=== PATIENT | male | born 2000 | race Caucasian/White ===

== ENCOUNTER 2022-04-15 20:26 | Emergency (ER) | payer MEDICAID ==
[2022-04-15 20:38] VITALS: BP 163/100; PULSE 80; O2SAT 98
--- NOTE | 2022-04-15 21:25 | ERPHSYRPT ---
- History of Present Illness Time Seen by Provider: 04/15/22 20:34 Source: patient Exam Limitations: no limitations Patient Subjective Stated Complaint: Ladder fell on head 1 hour ago. Triage Nursing Assessment: Pt presents to ED ambulatory, A & Ox3, all vitals stable. Skin PWD. Pt placed on monitor once in room. 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 No LOC, dizziness, nausea, or vomiting. Reports MOSES 7/10. Denies use of bloothinners. Denies neck pain. 1.5cm superficial laceration noted to crown of head. Slightly oozing red blood. Last tetanus immunization unknown. Physician History: 21 years old up-to-date with immunizations was working in the garage and heavy wooden ladder fell on its head causing a laceration. Patient was initially dazed, confused for a few seconds to minute and now feeling nauseated with moderate intensity headache especially in occipital parietal area. Denies any blurry vision, numbness tingling or focal weakness. There was bleeding initially but stopped with applying pressure. No injury anywhere else. Denies any neck pain. Occurred: hours ago (1) Severity: moderate Head Injury Location: parietal Method of Injury: direct blow Loss of Consciousness: no loss of consciousness Associated Symptoms: nausea, headaches, No vomiting, No abdominal pain, No shortness of breath, No diaphoresis, No chills, No chest pain, No malaise, No weakness Allergies/Adverse Reactions: No Known Drug Allergies Allergy (Unverified 04/15/22 20:39) Hx Tetanus, Diphtheria Vaccination/Date Given: No Travel Risk - International Travel Have you traveled outside of the country in past 3 weeks: No - Coronavirus Screening Are you exhibiting any of the following symptoms?: No Close contact with a COVID-19 positive Pt in past 14-21 Days: No - Vaccine Status Have you recieved a Covid-19 vaccination: No - Review of Systems Constitutional: No Symptoms Eyes: No Symptoms Ears, Nose, & Throat: No Symptoms Respiratory: No Symptoms Cardiac: No Symptoms Abdominal/Gastrointestinal: Nausea Genitourinary Symptoms: No Symptoms Musculoskeletal: Injury Skin: Skin Lesions Neurological: Headache Psychological: No Symptoms Hematologic/Lymphatic: No Symptoms Immunological/Allergic: No Symptoms - Past Medical History Pertinent Past Medical History: Yes Cardiac History: Hypertension - Past Surgical History Past Surgical History: No - Social History Smoking Status: Never smoker Exposure to second hand smoke: No Drug Use: none - Nursing Vital Signs Nursing Vital Signs: Initial Vital Signs Temperature 98.3 F 04/15/22 20:33 Pulse Rate 80 04/15/22 20:33 Respiratory Rate 18 04/15/22 20:33 Blood Pressure 163/100 04/15/22 20:33 O2 Sat by Pulse Oximetry 98 04/15/22 20:33 Pain Scale Pain Intensity 7 - Pigeon Coma Score Best Eye Response (Latasha): (4) open spontaneously Best Verbal Response (Pigeon): (5) oriented Best Motor Response (Latasha): (6) obeys commands Pigeon Total: 15 - Physical Exam General Appearance: no apparent distress, alert Head Injury: lacerations (2 cm laceration in the left posterior parietal area with no step in deformity. No active spurting.), tenderness, No active bleeding, No Alves's Sign Eye Exam: bilateral eye: normal inspection, PERRL, EOMI ENT Exam: airway nml, No evidence of ENT injury, No dental injury Neck Exam: supple, trachea midline, full range of motion, normal alignment, normal inspection Cardiovascular/Respiratory Exam: chest non-tender, normal breath sounds, regular rate/rhythm Gastrointestinal/Abdominal Exam: soft Back Exam: normal inspection, normal range of motion Extremity Exam: non-tender, normal range of motion Mental Status Exam: alert, oriented x 3, cooperative hay stacker Exam: normal hearing, normal speech, PERRL Coordination/Gait Exam: normal finger to nose, normal gait, normal cerebellar function, negative Romberg's sign Motor/Sensory Exam: no motor deficit, no sensory deficit, no pronator drift, negative Babinski's sign DTR Exam: bicep (R): 2+, bicep (L): 2+, knee (R): 2+, knee (L): 2+ Skin Exam: normal color SpO2 Interpretation: normal SpO2: 98 O2 Delivery: Room Air Procedures - Laceration/Wound Repair Head Time of Procedure: 21:24 Wound Location: head Wound Length (cm): 2 Wound's Depth, Shape: superficial Wound Explored: clean Irrigated: Yes Hibiclens Prep: Yes Anesthesia: 1% Lidocaine Volume Anesthetic (ccs): 2 Wound Repaired With: [place] Number of Sutures: 3 Layer Closure?: No Ordered Tests: Active Orders 24 hr Category Date Time Status HEAD WITHOUT CONTRAST [CT] Stat Exams 04/15/22 20:58 Taken - Progress Progress: improved Progress Note: 04/15/[address] head which is negative for any acute trauma related findings. Laceration is repaired. Patient probably have some element of concussion, recommended Tylenol as needed for headache and outpatient follow-up. Also recommended avoiding being around heavy mechanical work. Counseled pt/family regarding: diagnosis, need for follow-up, rad results - Departure Departure Disposition: Home Clinical Impression: Scalp laceration, Concussion Condition: Stable Critical Care Time: No Referrals: TOMMIE OLIVER [Primary Care Provider] - Follow up/PCP as directed (1-2 days for reevaluation) Instructions: Concussion, Adult (DC), Closed Head Injury (DC) Additional Instructions: Intermittent ice application. Take Tylenol as needed. Follow-up head injury/concussion instructions and return to ER for any worsening. Follow-up with primary care for reevaluation and clearance before going back to work.
[2022-04-15] MEDS ORDERED: TYLENOL 325 MG ONE (21:49)
[2022-04-15] MEDS: TYLENOL 325 MG PO STA (21:50)
--- NOTE | 2022-04-16 09:08 | XRAY ---
Indication: Headache, pain, nausea following trauma. Multiple contiguous axial images obtained through the head without contrast. Comparison: None Normal appearing brain parenchyma, ventricles, and bony calvarium. Visualized paranasal sinuses and mastoid air cells are clear. Impression: Normal CT head without contrast exam. Comment: Preliminary interpretation made by [facility]. No critical discrepancy.
== END 2022-04-15 22:31 | disposition home or self-care (01) ==
LOC: ED 20:26
DX: S06.0X0A Concussion without loss of consciousness, initial encounter (principal); S01.01XA Laceration without foreign body of scalp, initial encounter; W20.8XXA Other cause of strike by thrown, projected or falling object, initial encounter; Y92.008 Other place in unspecified non-institutional (private) residence as the place of occurrence of the external cause; R11.0 Nausea; R51.9 Headache, unspecified; I10 Essential (primary) hypertension; Z28.310 Unvaccinated for COVID-19
CPT/HCPCS: 12001; 70450; 99283; A9270-GY

== ENCOUNTER 2024-02-19 16:07 | Emergency (ER) | payer OTHER ==
--- NOTE | 2024-02-19 16:10 | ERPHSYRPT ---
- History of Present Illness Time Seen by Provider: 02/19/24 16:09 Historian: patient Exam Limitations: no limitations Physician History: This is a 23-year-old white male patient of Dr. Jacobsen and grubber Dr. Andres. Patient states he recently saw his grubber and everything checked out fine per his report. Patient has a history of an enlarged heart and some rhythm issues but he is not on any cardiac medications. He does have a history of hypertension and is taking lisinopril. He has no shortness of breath. He has no cough or fever symptoms. Patient states that the patient was not active and was at work when he noticed some pain in the midportion of the sternum. He described it as an ache with sharp shooting bilateral sensation into his anteri or chest. He has no history of coronary artery disease. Timing/Duration: today Activities at Onset: none Quality: aching, sharpness Location: substernal, central Severity of Pain-Max: mild Severity of Pain-Current: mild Modifying Factors: Improves With: nothing Associated Symptoms: denies symptoms Prior Chest Pain/Cardiac Workup: recently seen/treated (His grubber within the last 1 to 2 weeks) Nitro Today/Relief: no nitro taken today Aspirin Treatment Today: 81 mg x 4, provided by ED Allergies/Adverse Reactions: No Known Drug Allergies Allergy (Unverified 04/15/22 20:39) Hx Tetanus, Diphtheria Vaccination/Date Given: No Travel Risk - International Travel Have you traveled outside of the country in past 3 weeks: No - Emerging Infectious Disease Are you exhibiting symptoms associated with any current EIDs: No - Review of Systems Constitutional: No Symptoms Eyes: No Symptoms Ears, Nose, & Throat: No Symptoms Respiratory: No Symptoms Cardiac: Chest Pain Abdominal/Gastrointestinal: No Symptoms Genitourinary Symptoms: No Symptoms Musculoskeletal: No Symptoms Skin: No Symptoms Neurological: No Symptoms Psychological: No Symptoms Endocrine: No Symptoms Hematologic/Lymphatic: No Symptoms Immunological/Allergic: No Symptoms All Other Systems: Reviewed and Negative - Past Medical History Pertinent Past Medical History: Yes Cardiac History: Hypertension - Past Surgical History Past Surgical History: No - Social History Smoking Status: Never smoker Exposure to second hand smoke: No Drug Use: none - Nursing Vital Signs Nursing Vital Signs: Initial Vital Signs Temperature 98.6 F 02/19/24 16:10 Pulse Rate 83 02/19/24 16:10 Respiratory Rate 16 02/19/24 16:10 Blood Pressure 126/84 02/19/24 16:10 O2 Sat by Pulse Oximetry 94 L 02/19/24 16:10 Pain Scale Pain Intensity 6 - Physical Exam General Appearance: no apparent distress, alert, anxiety, obese Eye Exam: PERRL/EOMI, eyes nml inspection Ears, Nose, Throat Exam: normal ENT inspection, moist mucous membranes Neck Exam: normal inspection, non-tender, supple, full range of motion Respiratory Exam: normal breath sounds, lungs clear, airway intact, No chest tenderness, No respiratory distress Cardiovascular Exam: regular rate/rhythm, normal heart sounds, normal peripheral pulses Gastrointestinal/Abdomen Exam: soft, normal bowel sounds, No tenderness Back Exam: normal inspection, normal range of motion, No CVA tenderness, No vertebral tenderness Extremity Exam: normal inspection, normal range of motion, pelvis stable Neurologic Exam: alert, oriented x 3, cooperative, 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, nml cerebellar function, nml station & gait, sensation nml Skin Exam: normal color, warm, dry Lymphatic Exam: No adenopathy SpO2 Interpretation: normal O2 Delivery: Room Air - Course Nursing assessment & vital signs reviewed: Yes EKG Interpreted by Me: RATE (91), Sinus Rhythm, NORMAL AXIS, NORMAL INTERVALS, NORMAL QRS, Other (No acute ischemic changes on today's twelve-lead EKG.) Ordered Tests: Active Orders 24 hr Category Date Time Status EKG-ER Only STAT Care 02/19/24 16:21 Active IV Insertion STAT Care 02/19/24 16:21 Active Pulse Oximetry (ED) STAT Care 02/19/24 16:21 Active CHEST 1 VIEW (PORTABLE) Stat Exams 02/19/24 16:21 Completed CBC W DIFF Stat Lab 02/19/24 16:21 Completed CMP Stat Lab 02/19/24 16:20 Completed D-DIMER QUANTITATIVE Stat Lab 02/19/24 16:20 Completed MAGNESIUM Stat Lab 02/19/24 16:20 Completed TROPONIN Q4H Lab 02/19/24 16:20 Completed TROPONIN Q4H Lab 02/19/24 20:30 Ordered TROPONIN Q4H Lab 02/20/24 00:30 Ordered Medication Summary Discontinued Medications Generic Name Dose Route Start Last Admin Trade Name Freq PRN Reason Stop Dose Admin Aspirin 324 mg 02/19/24 16:21 02/19/24 16:41 Aspirin 81 Mg Tab.Chew PO 02/19/24 16:22 324 mg STAT ONE Administration Aspirin Confirm 02/19/24 16:40 Aspirin 81 Mg Tab.Chew Administered 02/19/24 16:41 Dose 324 mg .ROUTE .STK-MED ONE Lab/Rad Data: Laboratory Result Diagrams 02/19/24 16:21 02/19/24 16:20 Laboratory Results 02/19/24 02/19/24 02/19/24 Range/Units 16:21 16:20 16:20 WBC 10.9 H (4.23-9.07) x10^3/uL RBC 4.81 (4.63-6.08) x10^6/uL Hgb 14.3 (13.7-17.5) g/dL Hct 42.1 (40.1-51.0) % MCV 87.5 (79.0-92.2) fL MCH 29.7 (25.7-32.2) pg MCHC 34.0 (32.3-36.5) g/dL RDW 12.2 (11.6-14.4) % Plt Count 256 (163-337) x10^3/uL MPV 9.7 (9.4-12.4) fL Gran % 61.1 (34.0-67.9) % Immature Gran % (Auto) 0.2 (0.001-0.429) % Nucleat RBC Rel Count 0.0 (0.00-0.2) % Eos # (Auto) 0.22 (0.04-0.54) x10^3/uL Immature Gran # (Auto) 0.02 (0.001-0.031) x10^3u/L Absolute Lymphs (auto) 3.04 (1.32-3.57) x10^3/uL Absolute Monos (auto) 0.92 H (0.30-0.82) x10^3/uL Absolute Nucleated RBC 0.00 (0.00-0.012) x10^3u/L Lymphocytes % 27.9 (21.8-53.1) % Monocytes % 8.4 (5.3-12.2) % Eosinophils % 2.0 (0.8-7.0) % Basophils % 0.4 (0.2-1.2) % Absolute Granulocytes 6.67 H (1.78-5.38) x10^3/uL Basophils # 0.04 (0.01-0.08) x10^3/uL D-Dimer < 0.19 (0.0-0.50) mg/L Sodium (135-145) mmol/L Potassium (3.5-5.1) mmol/L Chloride (98-107) mmol/L Carbon Dioxide (22-30) mmol/L Anion Gap (5-15) MEQ/L BUN (9-20) mg/dL Creatinine (0.66-1.25) mg/dL Estimated GFR ML/MIN Glucose (74-106) mg/dL Calcium (8.4-10.2) mg/dL Magnesium (1.6-2.3) mg/dL Total Bilirubin (0.2-1.3) mg/dL AST (17-59) U/L ALT (0-50) U/L Alkaline Phosphatase (38-126) U/L Troponin I < 0.012 (0.000-0.033) ng/mL Serum Total Protein (6.3-8.2) g/dL Albumin (3.5-5.0) g/dL 02/19/24 Range/Units 16:20 WBC (4.23-9.07) x10^3/uL RBC (4.63-6.08) x10^6/uL Hgb (13.7-17.5) g/dL Hct (40.1-51.0) % MCV (79.0-92.2) fL MCH (25.7-32.2) pg MCHC (32.3-36.5) g/dL RDW (11.6-14.4) % Plt Count (163-337) x10^3/uL MPV (9.4-12.4) fL Gran % (34.0-67.9) % Immature Gran % (Auto) (0.001-0.429) % Nucleat RBC Rel Count (0.00-0.2) % Eos # (Auto) (0.04-0.54) x10^3/uL Immature Gran # (Auto) (0.001-0.031) x10^3u/L Absolute Lymphs (auto) (1.32-3.57) x10^3/uL Absolute Monos (auto) (0.30-0.82) x10^3/uL Absolute Nucleated RBC (0.00-0.012) x10^3u/L Lymphocytes % (21.8-53.1) % Monocytes % (5.3-12.2) % Eosinophils % (0.8-7.0) % Basophils % (0.2-1.2) % Absolute Granulocytes (1.78-5.38) x10^3/uL Basophils # (0.01-0.08) x10^3/uL D-Dimer (0.0-0.50) mg/L Sodium 140 (135-145) mmol/L Potassium 4.0 (3.5-5.1) mmol/L Chloride 104 (98-107) mmol/L Carbon Dioxide 27 (22-30) mmol/L Anion Gap 13.3 (5-15) MEQ/L BUN 14 (9-20) mg/dL Creatinine 0.82 (0.66-1.25) mg/dL Estimated GFR 128.2 ML/MIN Glucose 118 H (74-106) mg/dL Calcium 9.5 (8.4-10.2) mg/dL Magnesium 2.0 (1.6-2.3) mg/dL Total Bilirubin 0.30 (0.2-1.3) mg/dL AST 30 (17-59) U/L ALT 33 (0-50) U/L Alkaline Phosphatase 69 (38-126) U/L Troponin I (0.000-0.033) ng/mL Serum Total Protein 7.2 (6.3-8.2) g/dL Albumin 4.4 (3.5-5.0) g/dL - Progress Progress: improved, re-examined Air Movement: good Progress Note: 02/19/24 17:12 My medical decision making and the assignment of moderate complexity to this patient's medical issue today is based on review of the patient's past medical history, review the patient's medication list, the review of the patient drug al lergy list, history present illness and physical findings on examination. The workup in this patient includes placement of intravenous line, patient is to chew 4 baby aspirin/81 mg each, CBC, CMP, twelve-lead EKG, magnesium level, troponin level, D-dimer level, and chest x-ray. Differential diagnosis includes but is not limited to nonspecific chest pain, myocardial infarction, electrolyte abnormalities, arrhythmias, pulmonary embolus, pneumonia The chest x-ray was interpreted by the radiologist and I reviewed the impression. The impression states normal chest x-ray. No acute cardiopulmonary process. Blood Culture(s) Obtained: No Antibiotics given: No Medical Desision Making - Diagnostic Testing Diagnostic test were ordered, analyzed, and reviewed by me: Yes Radiological Interpretation: Reviewed by me, Teleradiologist Report - Risk of complications Minimal Risk: Minimal risk of morbidity - Departure Departure Disposition: Home Clinical Impression: Nonspecific chest pain Condition: Stable Critical Care Time: No Referrals: ELZA JACOBSEN MD [Primary Care Provider] - Follow up/PCP as directed Additional Instructions: Your primary care provider and your grubber tomorrow, 02/20/2024, to make arrangements for follow-up appointment and to be seen in the next 3 to 5 days. Take all your medications as prescribed.
[2024-02-19 16:17] VITALS: PULSE 83; RESP 16
[2024-02-19 16:37] LABS: Absolute Neutrophil Ct (ANC) 6.67 x10^3/uL (1.78-5.38); BASOPHIL % 0.4 % (0.2-1.2); Basophil (Absolute #) 0.04 x10^3/uL (0.01-0.08); Eosinophil (Absolute #) 0.22 x10^3/uL (0.04-0.54); Hematocrit 42.1 % (40.1-51.0); Hemoglobin 14.3 g/dL (13.7-17.5); IMMATURE GRAN # 0.02 x10^3u/L (0.001-0.031); IMMATURE GRAN % 0.2 % (0.001-0.429); Lymphocyte (Absolute #) 3.04 x10^3/uL (1.32-3.57); Lymphocytes % 27.9 % (21.8-53.1); Mean Cell Volume 87.5 fL (79.0-92.2); Mean Corpuscular Hemoglobin 29.7 pg (25.7-32.2); Mean Platelet Volume 9.7 fL (9.4-12.4); Monocyte (Absolute #) 0.92 x10^3/uL (0.30-0.82); Monocytes % 8.4 % (5.3-12.2); Neutrophil % 61.1 % (34.0-67.9); Platelet Count 256 x10^3/uL (163-337); Red Blood Count 4.81 x10^6/uL (4.63-6.08); Red Cell Distribution Width 12.2 % (11.6-14.4); White Blood Count 10.9 x10^3/uL (4.23-9.07)
[2024-02-19] MEDS ORDERED: BABY ASPIRIN 81 MG CHEW ONE (16:40)
[2024-02-19] MEDS: BABY ASPIRIN 81 MG CHEW PO ONE (16:41)
[2024-02-19 16:50] LABS: ALBUMIN 4.4 g/dL (3.5-5.0); ANION GAP 13.3 MEQ/L (5-15); BILIRUBIN,TOTAL 0.3 mg/dL (0.2-1.3); Calcium 9.5 mg/dL (8.4-10.2); Creatinine 1 0.82 mg/dL (0.66-1.25); EST GLOMERULAR FILTRATION RATE 128.2 ML/MIN; Total Protein 7.2 g/dL (6.3-8.2)
--- NOTE | 2024-02-19 16:50 | XRAY ---
Indication: Chest pain 3 days. Comparison: June 04, 2023 Portable chest again demonstrates normal heart, lungs, and bony thorax with a few incidental tiny calcified granulomas.
[2024-02-19 17:01] VITALS: TEMP 98.6
[2024-02-19 17:10] VITALS: BP 135/73; O2SAT 99
== END 2024-02-19 17:30 | disposition home or self-care (01) ==
LOC: ED 16:07
DX: R07.9 Chest pain, unspecified (principal); I10 Essential (primary) hypertension; Z79.899 Other long term (current) drug therapy
CPT/HCPCS: 36000; 36415; 71045; 80053; 83735; 84484; 85025; 85379; 93005; 94760; 99284; A9270-GY